=== PATIENT | male | born 1940 | race Caucasian/White ===

== ENCOUNTER 2016-10-23 18:02 | Inpatient (IN) | payer MEDICARE ==
[2016-10-24 03:26] LABS: BASO % 0.7 % (0-2); EOS % 3.2 % (0-7); EOSINOPHIL ABSOLUTE COUNT 0.1 tho/cmm (0.0-0.7); IMMATURE GRANULOCYTES ABSOLUTE 0.01 tho/cmm (0-0.03); IMMATURE GRANULOCYTES PERCENT 0.2 % (0-0.3); LYMPH % 16.7 % (20-45); LYMPH ABSOLUTE COUNT 0.7 tho/cmm (0.8-4.5); MCV (MEAN CELL VOLUME) 71.3 fl (82.0-96.0); MEAN PLATELET VOLUME 8.8 cmc (9.4-12.4); MONO % 9.2 % (0-12); MONOCYTE ABSOLUTE COUNT 0.4 tho/cmm (0.0-1.2); NEUTROPHIL ABSOLUTE COUNT 2.8 tho/cmm (1.6-8.0); NEUTROPHIL-AUTOMATED 2.8 tho/cmm (1.6-8.0); PLATELET COUNT 189 tho/cmm (150-450); RED BLOOD COUNT 2.75 mil/cmm (4.40-5.70); RED CELL DISTRIBUTION WIDTH 18.1 % (12.4-16.4)
[2016-10-24 03:34] LABS: ANION GAP 10 mmol/L (0-20); BLOOD UREA NITROGEN 29 mg/dl (6-24); CARBON DIOXIDE-VENOUS 25 mmol/L (22-32); CHLORIDE 111 mmol/l (96-110); CREATININE 1.05 mg/dl (0.60-1.30); GLUCOSE 96 mg/dL (70-110); POTASSIUM 4.3 mmol/L (3.7-5.1); SODIUM 142 mmol/L (135-145); eGFR VALUE FOR BLACK 79 mL/Min
[2016-10-24 03:58] LABS: HCT-HEMATOCRIT 19.6 % (36.0-53.5); MCH (MEAN CORPUSCULAR HGB) 18.9 pg (28.0-32.0); MCHC MEAN CORPUSCULAR HGB CONC 26.5 % (32.0-36.0)
[2016-10-24 04:02] LABS: HGB-HEMOGLOBIN 5.2 gm/dl (13.5-17.0)
[2016-10-24 10:33] LABS: MCV (MEAN CELL VOLUME) 74.2 fl (82.0-96.0); RED CELL DISTRIBUTION WIDTH 19.2 % (12.4-16.4)
[2016-10-24 11:02] LABS: HCT-HEMATOCRIT 26.2 % (36.0-53.5); HGB-HEMOGLOBIN 7.5 gm/dl (13.5-17.0)
[2016-10-24] MEDS ORDERED: HYDROCHLOROTHIA25 M1 PO (12:44)
[2016-10-24] MEDS ORDERED: PRINIVIL10 M1 PO (12:45)
[2016-10-24] MEDS ORDERED: PLAVIX75 M1 PO (12:45)
[2016-10-24] MEDS ORDERED: ZOCOR40 M1 PO (12:46)
[2016-10-24 15:57] LABS: HCT-HEMATOCRIT 25.8 % (36.0-53.5); HGB-HEMOGLOBIN 7.3 gm/dl (13.5-17.0); MCV (MEAN CELL VOLUME) 73.9 fl (82.0-96.0); RED CELL DISTRIBUTION WIDTH 19.1 % (12.4-16.4)
[2016-10-25 04:20] LABS: HCT-HEMATOCRIT 24.5 % (36.0-53.5); MCV (MEAN CELL VOLUME) 74.7 fl (82.0-96.0)
[2016-10-25 15:44] LABS: HGB-HEMOGLOBIN 7.5 gm/dl (13.5-17.0); MCV (MEAN CELL VOLUME) 73.9 fl (82.0-96.0); RED CELL DISTRIBUTION WIDTH 19.5 % (12.4-16.4)
[2016-10-26 04:13] LABS: HCT-HEMATOCRIT 25.6 % (36.0-53.5); HGB-HEMOGLOBIN 7.4 gm/dl (13.5-17.0); MCV (MEAN CELL VOLUME) 73.4 fl (82.0-96.0); RED CELL DISTRIBUTION WIDTH 19.7 % (12.4-16.4)
[2016-10-26] MEDS ORDERED: NICOTINE PATCH1 EAC2 TOP (09:30)
[2016-10-26] MEDS ORDERED: COLACE100 M1 PO (09:30)
[2016-10-26] MEDS ORDERED: IRON325 M3 PO (09:31)
[2016-10-26] MEDS ORDERED: PROTONIX40 M2 PO (09:32)
== END 2016-10-26 11:45 | DRG 982 ==
LOC: PCUB 18:02
PROVIDERS: Registered Nurse; ADMIT Family Medicine
PROC: 0DB94ZZ Excision of Duodenum, Percutaneous Endoscopic Approach (ICD-10-PCS; principal; 2016-10-23)
PROC: 0DBN4ZZ Excision of Sigmoid Colon, Percutaneous Endoscopic Approach (ICD-10-PCS; 2016-10-23)
PROC: 0DJ08ZZ Inspection of Upper Intestinal Tract, Via Natural or Artificial Opening Endoscopic (ICD-10-PCS; 2016-10-23)
PROC: 0DJD8ZZ Inspection of Lower Intestinal Tract, Via Natural or Artificial Opening Endoscopic (ICD-10-PCS; 2016-10-23)
DX: D50.9 Iron deficiency anemia, unspecified (principal); D68.9 Coagulation defect, unspecified; D62 Acute posthemorrhagic anemia; E78.5 Hyperlipidemia, unspecified; H91.90 Unspecified hearing loss, unspecified ear; I10 Essential (primary) hypertension; I25.10 Atherosclerotic heart disease of native coronary artery without angina pectoris; I73.9 Peripheral vascular disease, unspecified
CPT/HCPCS: C1751; C9113; J2250; J3010; J7030; P9016